=== PATIENT | male | born 1980 | race Native Hawaiian/Other Pacific Islander ===

== ENCOUNTER 2019-10-03 08:32 | Day surgery (SDC) | payer OTHER ==
[~2019-10-03] VITALS: Ht 170.2 cm; Wt 129.3 kg
[2019-10-03 09:27] LABS: POTASSIUM 3.2 mmol/L (3.6-5.2)
[2019-10-03 09:47] LABS: PLATELET COUNT 175 K/uL (142-355)
== END 2019-10-03 12:10 | disposition home or self-care (01) ==
LOC: OR 08:32
PROVIDERS: Student in an Organized Health Care Education/Training Program
PROC: 0LBT0ZZ Excision of Left Ankle Tendon, Open Approach (ICD-10-PCS; principal; 2019-10-03)
DX: M67.48 Ganglion, other site (principal)
CPT/HCPCS: 80053; 85027; J0690; J2250; J2704; J3010; J3490

== ENCOUNTER 2019-10-26 10:38 | Outpatient (CLI) | payer OTHER ==
[2019-10-26 11:46] LABS: PLATELET COUNT 209 K/uL (142-355)
== END 2019-10-26 19:41 | disposition home or self-care (01) ==
LOC: LABW 10:38
PROVIDERS: ATTEND Internal Medicine
DX: R53.83 Other fatigue (principal); Z79.899 Other long term (current) drug therapy; E11.65 Type 2 diabetes mellitus with hyperglycemia; M25.50 Pain in unspecified joint; Z72.89 Other problems related to lifestyle; F19.20 Other psychoactive substance dependence, uncomplicated
CPT/HCPCS: 36415; 80053; 80061; 81000; 83036; 83735; 84443; 84550; 85027